=== PATIENT | female | born 1990 | race Caucasian/White ===

== ENCOUNTER → 2021-11-28 | Outpatient (CLI) | payer MEDICAID ==
[2021-11-28 08:49] LABS: BASO # 0.01 K/mm3 (0.02-0.10); HEMOGLOBIN 13.8 g/dL (12.5-16.0); LYMPH# 0.94 K/mm3 (1.50-4.00); MEAN CELL VOLUME 88 fl (78-100); MEAN CORPUSCULAR HEMOGLOBIN 30 pg (27-31); MEAN CORPUSCULAR HGB CONC 35 g/dL (33-37); MEAN PLATELET VOLUME 10.6 fl (7.4-10.4); MONO # 0.84 K/mm3 (0.20-0.80); NEU # 8.52 K/mm3 (1.40-6.50); PLATELET COUNT 245 K/mm3 (130-400); RED BLOOD COUNT 4.57 M/mm3 (4.10-5.30); RED CELL DISTRIBUTION WIDTH 12.7 % (11.5-14.5); WHITE BLOOD COUNT 10.3 K/mm3 (4.8-10.8)
[2021-11-28 08:59] LABS: ALBUMIN 4.5 g/dL (3.5-5.0); POTASSIUM 3.9 mmol/L (3.5-5.1)
[2021-11-28 09:00] LABS: CALCIUM 9.4 mg/dL (8.3-10.5)
[2021-11-28 09:01] LABS: TOTAL PROTEIN 7.9 g/dL (6.4-8.3)
[2021-11-28 09:03] LABS: TOTAL BILIRUBIN 0.8 mg/dL (0.2-1.2)
[2021-11-28 09:43] LABS: CLUE CELLS OBSERVED (Not Observd)
[2021-11-28 09:44] LABS: URINE APPEARANCE CLOUDY; URINE BILIRUBIN NEGATIVE (NEGATIVE); URINE BLOOD 250 ery/uL (NEGATIVE); URINE COLOR YELLOW; URINE KETONE 2+ (NEGATIVE); URINE LEUKOCYTE ESTERASE 1+ (NEGATIVE); URINE NITRATE NEGATIVE (NEGATIVE); URINE PROTEIN(semi-quant) 1+ (NEGATIVE); URINE UROBILINOGEN NORMAL (NORMAL); URINE WBC 31-50 /hpf (0-3)
[2021-11-28 09:45] LABS: URINE GLUCOSE NEGATIVE (NEGATIVE)
== END ==
LOC: LAB 08:33
PROVIDERS: Nurse Practitioner Family
DX: N89.8 Other specified noninflammatory disorders of vagina (principal)
CPT/HCPCS: Q0111